=== PATIENT | female | born 1995 | race Two or more races ===

== ENCOUNTER 2019-12-12 19:33 | Emergency (ER) | payer OTHER ==
[~2019-12-12] VITALS: Ht 167.6 cm; Wt 81.6 kg
== END 2019-12-12 22:23 | disposition home or self-care (01) ==
LOC: ER 19:33
DX: J06.9 Acute upper respiratory infection, unspecified (principal); B96.0 Mycoplasma pneumoniae [M. pneumoniae] as the cause of diseases classified elsewhere

== ENCOUNTER 2020-09-20 16:39 | Emergency (ER) | payer OTHER ==
[~2020-09-20] VITALS: Ht 167.6 cm; Wt 81.6 kg
== END 2020-09-20 22:11 | disposition home or self-care (01) ==
LOC: ER 16:39
DX: N83.291 Other ovarian cyst, right side (principal); N80.8 Other endometriosis

== ENCOUNTER 2021-02-27 13:10 | Emergency (ER) | payer OTHER ==
[~2021-02-27] VITALS: Ht 167.6 cm; Wt 77.1 kg
== END 2021-02-27 18:09 | disposition home or self-care (01) ==
LOC: ER 13:10
DX: R07.89 Other chest pain (principal); M94.0 Chondrocostal junction syndrome [Tietze]

== ENCOUNTER 2021-05-08 08:29 | Emergency (ER) | payer OTHER ==
[~2021-05-08] VITALS: Ht 167.6 cm; Wt 77.1 kg
[2021-05-08] MEDS ORDERED: ZITHROMAX500 MG PO (11:46)
[2021-05-08] MEDS ORDERED: FLONASE ALLERG9.9 ML NASAL (11:46)
[2021-05-08] MEDS ORDERED: MUCINEX DM ER1 EAC1 PO (11:46)
[2021-05-08] MEDS ORDERED: KETO10TA2 PO (11:46)
== END 2021-05-08 12:16 | disposition home or self-care (01) ==
LOC: ER 08:29
DX: J06.9 Acute upper respiratory infection, unspecified (principal); B96.0 Mycoplasma pneumoniae [M. pneumoniae] as the cause of diseases classified elsewhere; Z11.52 Encounter for screening for COVID-19

== ENCOUNTER 2021-06-04 08:37 | Emergency (ER) | payer OTHER ==
[~2021-06-04] VITALS: Ht 312.4 cm; Wt 77.1 kg
[~2021-06-04 08:37] MED LIST: FLONASE ALLERG9.9 ML NASAL; KETO10TA2 PO; MUCINEX DM ER1 EAC1 PO; ZITHROMAX500 MG PO
[2021-06-04] MEDS ORDERED: NORFLEX100MG PO (12:06)
[2021-06-04] MEDS ORDERED: KETO10TA2 PO (12:06)
== END 2021-06-04 13:43 | disposition home or self-care (01) ==
LOC: ER 08:37
DX: R20.0 Anesthesia of skin (principal)

== ENCOUNTER → 2021-11-09 | Emergency (ER) | payer OTHER ==
[~2021-11-09] VITALS: Ht 175.3 cm; Wt 77.1 kg
[~2021-11-09] MED LIST changes: +NORFLEX100MG PO
== END | disposition left against medical advice (07) ==
LOC: ER 16:22
DX: Z53.21 Procedure and treatment not carried out due to patient leaving prior to being seen by health care provider (principal)

== ENCOUNTER 2022-03-30 18:13 | Emergency (ER) | payer OTHER ==
[~2022-03-30] VITALS: Ht 167.6 cm; Wt 81.6 kg
[2022-03-30] MEDS ORDERED: MICONAZOLE 745 GM TOP (19:30)
== END 2022-03-30 19:55 | disposition home or self-care (01) ==
LOC: ER 18:13
DX: L30.4 Erythema intertrigo (principal)

== ENCOUNTER 2022-07-06 19:04 | Emergency (ER) | payer OTHER ==
[~2022-07-06] VITALS: Ht 167.6 cm; Wt 81.6 kg
[~2022-07-06 19:04] MED LIST changes: +MICONAZOLE 745 GM TOP
== END 2022-07-07 04:43 | disposition home or self-care (01) ==
LOC: ER 19:04
DX: U07.1 COVID-19 (principal); A49.3 Mycoplasma infection, unspecified site; J06.9 Acute upper respiratory infection, unspecified; E16.2 Hypoglycemia, unspecified

== ENCOUNTER 2022-07-14 15:14 | Emergency (ER) | payer OTHER ==
[~2022-07-14] VITALS: Ht 167.6 cm; Wt 81.6 kg
== END 2022-07-14 18:06 | disposition home or self-care (01) ==
LOC: ER 15:14
DX: B34.9 Viral infection, unspecified (principal)

== ENCOUNTER 2022-09-29 20:37 | Emergency (ER) | payer OTHER ==
[~2022-09-29] VITALS: Ht 167.6 cm; Wt 81.6 kg
== END 2022-09-29 23:31 | disposition home or self-care (01) ==
LOC: ER 20:37
DX: J10.1 Influenza due to other identified influenza virus with other respiratory manifestations (principal); Z20.822 Contact with and (suspected) exposure to COVID-19

== ENCOUNTER 2022-10-02 14:47 | Emergency (ER) | payer OTHER ==
[~2022-10-02] VITALS: Ht 167.6 cm; Wt 81.6 kg
[2022-10-02] MEDS ORDERED: NITROFURANTOIN100 M2 PO (18:21)
== END 2022-10-02 18:24 | disposition home or self-care (01) ==
LOC: ER 14:47
DX: J11.1 Influenza due to unidentified influenza virus with other respiratory manifestations (principal); N39.0 Urinary tract infection, site not specified

== ENCOUNTER 2022-10-17 07:44 | Emergency (ER) | payer OTHER ==
[~2022-10-17] VITALS: Ht 167.6 cm; Wt 77.6 kg
[~2022-10-17 07:44] MED LIST changes: +NITROFURANTOIN100 M2 PO
== END 2022-10-17 12:14 ==
LOC: ER 07:44
DX: B34.8 Other viral infections of unspecified site (principal); Z20.828 Contact with and (suspected) exposure to other viral communicable diseases

== ENCOUNTER 2022-10-25 09:19 | Emergency (ER) | payer OTHER ==
[~2022-10-25] VITALS: Ht 167.6 cm; Wt 77.1 kg
[2022-10-25] MEDS ORDERED: FLONASE ALLERG9.9 ML NASAL (12:51)
[2022-10-25] MEDS ORDERED: SINUS RINSE ST1 EACH NS (12:51)
[2022-10-25] MEDS ORDERED: MUCINEX DM ER1 EAC1 PO (12:52)
== END 2022-10-25 13:12 | disposition home or self-care (01) ==
LOC: ER 09:19
DX: J11.1 Influenza due to unidentified influenza virus with other respiratory manifestations (principal); Z20.822 Contact with and (suspected) exposure to COVID-19

== ENCOUNTER 2022-12-18 13:23 | Emergency (ER) | payer OTHER ==
[~2022-12-18] VITALS: Ht 167.6 cm; Wt 74.8 kg
[~2022-12-18 13:23] MED LIST changes: +SINUS RINSE ST1 EACH NS
== END 2022-12-18 18:18 | disposition home or self-care (01) ==
LOC: ER 13:23
DX: N39.0 Urinary tract infection, site not specified (principal)

== ENCOUNTER 2023-01-05 22:30 | Emergency (ER) | payer OTHER ==
[~2023-01-05] VITALS: Ht 172.7 cm; Wt 77.1 kg
[2023-01-06] MEDS ORDERED: VITATRUE COMBO1 EACH PO (07:53)
[2023-01-06] MEDS ORDERED: CEPHALEXIN500 MG PO (07:56)
== END 2023-01-06 08:14 ==
LOC: ER 22:30
DX: N39.0 Urinary tract infection, site not specified (principal); Z33.1 Pregnant state, incidental

== ENCOUNTER 2023-01-10 02:28 | Emergency (ER) | payer OTHER ==
[~2023-01-10] VITALS: Ht 167.6 cm; Wt 77.1 kg
[~2023-01-10 02:28] MED LIST changes: +CEPHALEXIN500 MG PO; +VITATRUE COMBO1 EACH PO
== END 2023-01-10 06:46 | disposition home or self-care (01) ==
LOC: ER 02:28
DX: O20.9 Hemorrhage in early pregnancy, unspecified (principal); Z3A.01 Less than 8 weeks gestation of pregnancy

== ENCOUNTER 2023-02-21 01:49 | Emergency (ER) | payer OTHER ==
[~2023-02-21] VITALS: Ht 167.6 cm; Wt 77.1 kg
== END 2023-02-21 03:40 | disposition home or self-care (01) ==
LOC: ER 01:49
DX: K59.01 Slow transit constipation (principal); O26.92 Pregnancy related conditions, unspecified, second trimester; Z3A.11 11 weeks gestation of pregnancy; N93.8 Other specified abnormal uterine and vaginal bleeding; D21.9 Benign neoplasm of connective and other soft tissue, unspecified; R10.9 Unspecified abdominal pain

== ENCOUNTER 2023-03-26 13:41 | Emergency (ER) | payer OTHER ==
[~2023-03-26] VITALS: Ht 162.6 cm; Wt 63.5 kg
== END 2023-03-26 20:00 | disposition home or self-care (01) ==
LOC: ER 13:41
DX: O26.92 Pregnancy related conditions, unspecified, second trimester (principal); Z3A.18 18 weeks gestation of pregnancy; R10.2 Pelvic and perineal pain; R11.10 Vomiting, unspecified

== ENCOUNTER 2023-08-29 20:03 | Emergency (ER) | payer OTHER ==
[~2023-08-29] VITALS: Ht 170.2 cm; Wt 86.2 kg
[2023-08-29 21:41] LABS: HEMATOCRIT 28.6 % (36.0-45.00); MEAN CELL VOLUME 80.1 fL (80.00-100.00); PLATELET COUNT 264 K/uL (150-450); RED BLOOD COUNT 3.57 M/uL (4.00-6.00); RED CELL DISTRIBUTION WIDTH 16.1 % (11.5-14.5)
[2023-08-29 21:54] LABS: MEAN CORPUSCULAR HEMOGLOBIN 26.3 pg (27.00-32.0)
[2023-08-29 21:55] LABS: HEMOGLOBIN 9.4 g/dL (12.0-15.00)
== END 2023-08-29 22:55 | disposition home or self-care (01) ==
LOC: ER 20:03
DX: J10.1 Influenza due to other identified influenza virus with other respiratory manifestations (principal); R53.81 Other malaise; R51.9 Headache, unspecified; Z20.822 Contact with and (suspected) exposure to COVID-19

== ENCOUNTER 2024-02-18 19:26 | Emergency (ER) | payer OTHER ==
[~2024-02-18] VITALS: Ht 167.6 cm; Wt 83.0 kg
[2024-02-18] MEDS ORDERED: ACETAMINOPHEN 325 MG TABLET PO STA (20:19)
[2024-02-18 21:02] LABS: HEMATOCRIT 37.8 % (36.0-45.00); HEMOGLOBIN 12.3 g/dL (12.0-15.00); MEAN CELL VOLUME 75.1 fL (80.00-100.00); MEAN CORPUSCULAR HEMOGLOBIN 24.4 pg (27.00-32.0); MEAN CORPUSCULAR HGB CONC 32.5 g/dl (32.0-36.0); PLATELET COUNT 353 K/uL (150-450); RED BLOOD COUNT 5.04 M/uL (4.00-6.00)
[2024-02-18 21:21] LABS: URINE APPEARANCE Clear; URINE BILIRRUBIN Negative (NEGATIVE); URINE BLOOD Negative; URINE COLOR Yellow; URINE GLUCOSE Negative (NEGATIVE); URINE LEUKOCYTE Trace; URINE NITRATE Negative; URINE PROTEIN Negative (NEGATIVE); URINE UROBILINOGEN 0.2 E.U./dl
[2024-02-18 21:22] LABS: URINE BACTERIA 2490.6 uL (0.0-1933); URINE RBC 5.1 uL (0.0-20.8); URINE WBC 21.6 uL (0.0-23.2)
[2024-02-18 21:27] LABS: CALCIUM 9.5 mg/dL (8.5-10.1); CREATININE SERUM 1.03 mg/dL (0.55-1.02); GFR 62.92; POTASSIUM 3.97 mEq/L (3.5-5.1)
== END 2024-02-18 22:05 | disposition home or self-care (01) ==
LOC: ER 19:27
PROVIDERS: General Practice
DX: R42 Dizziness and giddiness (principal)